=== PATIENT | female | born 1945 ===

== ENCOUNTER → 2024-12-26 12:48 | Outpatient (REF) | payer MEDICARE, OTHER, SELFPAY | LOC: HWRCS 12:48 | PROVIDERS: ATTENDING PHYSICIAN Internal Medicine Cardiovascular Disease; FAMILY PHYSICIAN Internal Medicine | DX: R06.09 Other forms of dyspnea (principal) | CPT/HCPCS: 93306 ==

== ENCOUNTER 2025-02-24 16:01 | Emergency (ER) | payer MEDICARE, OTHER, SELFPAY ==
[2025-02-24 16:04] VITALS: BP 156/78
[2025-02-24] MEDS: LET TOPICAL ANESTHETIC GEL 3 ML TOPICAL (16:29)
--- NOTE | 2025-02-24 18:18 | ED.GENMED ---
History of Present Illness
General
Chief Complaint: Fall
Time Seen by Provider: 02/24/25 16:11
History of Present Illness
History of Present Illness:
79-year-old female presents the emergency department as after tripping and falling from a [employer] store. Denies LOC. Denies any headache. Did have a minor nosebleed that has since improved. No neck pain or extremity paresthesias
Review of Systems
Review of Systems
Allergies reviewed?: Yes
All Other Systems: ROS reviewed and negative except as documented in HPI and ROS
Phy Exam
Physical Exam
Physical Exam:
GEN: Well appearing, NAD, WDWN
HEENT: Oral mucosa moist, no scleral icterus. Diffuse swelling and ecchymosis across the nasal bridge and periorbitally bilaterally. No gross nasal deformity. No active epistaxis. Intraoral laceration with extraoral extension to the right lower
lip does not cross the vermilion border, no dental injury. No midline cervical spine tenderness
Cardiac: Regular rate
Lung: No respiratory distress, no tachypnea
MSK: No gross deformity or injuries
Skin: Good color, no pallor or jaundice, no rashes
Neuro: AO x3, moves all extremities freely, bilateral upper extremity strength 5 out of 5
Psych: Calm, cooperative
Course
Orders/Labs/Results
Orders:
Orders
02/24/25 16:23
CT Head W/o Iv Contrast Urgent
Comment:
Reason For Exam: fall head injury
Lidocaine/Epinephrine/Tetracai [Let Topical Anesthetic Gel] 3 ml TOPICAL NOW STA
02/24/25 17:54
CR Shoulder - Right Min 2 View Urgent
Comment:
Reason For Exam: injury
Vital Signs
Initial and Last Documented VS:
Initial Vital Signs
Temp Pulse Resp BP Pulse Ox
98.0 F 76 18 156/78 98
02/24/25 16:04 02/24/25 16:04 02/24/25 16:04 02/24/25 16:04 02/24/25 16:04
Last Documented Vital Signs
Temp Pulse Resp BP Pulse Ox
98.0 F 76 18 156/78 98
02/24/25 16:04 02/24/25 16:04 02/24/25 16:04 02/24/25 16:04 02/24/25 18:19
Procedures
Laceration Closure
R lower lip, internal:
Status of Wound: clean
Size of Wound in cm: 1
Description of Wound Edges: ragged
Preparation: cleaned with saline
Anesthesia: 1% Lidocaine with epi
Wound exploration: explored to base- no FB
Type of Closure: single layer closure
Skin Closure Material: 5-0 chromic gut
Number of sutures: 1
MDM/Problems Addressed
MDM/Problems Addressed:
CT shows no evidence for acute intracranial injury. The patient did request shoulder imaging due to shoulder pain from initial evaluation however her exam is benign with no bony tenderness or ecchymosis. Intraoral laceration was closed with a
single suture and extraoral portion was closed with skin glue. Discussed supportive care
*Pulse Oximetry
SaO2: 98
Oxygen Mode of Delivery: Room air
Patient hypoxic: no
*Critical Care Note
Total Time (30-74mins, 75-104mins- exclusive of procedures): Not Applicable
ED Attending Note
-
Portions of this chart may have been created with voice recognition software.� Occasional wrong word or��sound alike� substitutions may have occurred due to the inherent limitations of voice recognition software.
Discharge Plan
Departure
Patient Disposition: Home (Routine Discharge)
Date of Disposition: 02/24/25
Time of Disposition: 18:18
Patient with high blood pressure during this ER visit?: No
Discharge Problem:
Closed head injury, Contusion of nose
Instructions: Head Injury in Adults (DC)
Prescriptions:
No Action
multivitamin Tablet
1 tab PO DAILY
clopidogrel 75 mg Tablet
75 mg PO DAILY
lorazepam 0.5 mg Tablet
0.5 mg PO HS
metoprolol tartrate 50 mg Tablet
50 mg PO BID
nitroglycerin 0.4 mg Tablet, Sublingual
0.4 mg SUBLINGUAL Q5-15M PRN (Reason: chest pain)
pravastatin 20 mg Tablet
20 mg PO QPM
cholecalciferol (vitamin D3) [Vitamin D3] 50 mcg (2,000 unit) Capsule
50 mcg PO DAILY
mupirocin 2 % ointment
1 applic topical BID Qty: 1 0RF
Patient Comments:
started treatment 03/04/23 and was taking BID, last took at home 03/07/23 in am
docusate sodium 100 mg Capsule
100 mg PO BID Qty: 30 0RF
famotidine 20 mg Tablet
20 mg PO HS Qty: 30 0RF
Rx Instructions:
Take nightly while on increased dose of Aspirin to prevent GI upset.
sennosides [Senna Lax] 8.6 mg Tablet
17.2 mg PO BID Qty: 30 0RF
tramadol 50 mg Tablet
50 - 100 mg PO Q6H PRN (Reason: moderate-severe pain) Qty: 30 0RF
Rx Instructions:
1 tab for moderate pain, 2 if severe.
Dx total joint.
ondansetron HCl 4 mg tablet
4 mg PO Q6H PRN (Reason: nausea and vomiting) Qty: 30 0RF
Rx Instructions:
Can take 1/2 hour prior to Tramadol if experiencing recurrent nausea.
prednisone 10 mg tablet
40 mg PO TAPER Qty: 20 0RF
Rx Instructions:
4 TABS X 2 DAYS, 3 TABS X 2 DAYS, 2 TABS X 2 DAYS, 1 TAB X 2 DAYS, THEN STOP
aspirin 81 mg tablet,chewable
81 mg PO BID Qty: 60 0RF
Rx Instructions:
Take twice a day for 4 weeks for blood clot prevention; then resume Aspirin 81 mg daily.
meclizine 12.5 mg tablet
12.5 mg PO TID PRN (Reason: motion sickness) Qty: 15 0RF
acetaminophen [Tylenol Extra Strength] 500 mg tablet
1,000 mg PO Q6H Qty: 60 0RF
Rx Instructions:
DO NOT exceed >4000 mg daily.
valsartan 80 mg Tablet
80 mg PO DAILY Qty: 0 0RF
Rx Instructions:
HOLD if systolic blood pressure <130 while on Tramadol.
amlodipine 2.5 mg Tablet
2.5 mg PO DAILY Qty: 0 0RF
Rx Instructions:
HOLD IF systolic blood pressure <130 while on Tramadol.
pramipexole 0.125 mg Tablet
0.125 mg PO HS Qty: 0 0RF
furosemide 20 mg Tablet
20 mg PO DAILY Qty: 0 0RF
Rx Instructions:
HOLD IF systolic blood pressure <130 while on Tramadol.
Referrals:
Noel Diamond MD [Family Provider, Internal Medicine]
Activity Restrictions/Additional Instructions:
Suture with dissolvable Nexplanon Sundays. It may come out as 1 strain after a period of time. Rinse the mouth gently with water after eating and avoid straws for the next 5 days
Interventions
Interventions:
*Risk Screen - Suicide Last Done: 02/24/25 18:40
*General Assessment Last Done: 02/24/25 16:04
*Neglect/Abuse Screening Last Done: 02/24/25 18:40
[facility] Risk Assessment Tool Last Done: 02/24/25 16:02
*Nursing Disposition Last Done: 02/24/25 18:40
ED-Musculoskeletal Assessment Last Done: 02/24/25 17:00
ED- Neurological Assessment Last Done: 02/24/25 17:00
ED-Skin Assessment Last Done: 02/24/25 17:00
Discharge Date and Time
Discharge Date/Time: 02/24/25 18:40
Print Language: [id number]
== END 2025-02-24 18:40 | disposition home or self-care (01) ==
LOC: EMR 16:01
PROVIDERS: EMERGENCY PHYSICIAN Emergency Medicine; FAMILY PHYSICIAN Internal Medicine
DX: S01.511A Laceration without foreign body of lip, initial encounter (principal); S00.33XA Contusion of nose, initial encounter; M25.511 Pain in right shoulder; W01.0XXA Fall on same level from slipping, tripping and stumbling without subsequent striking against object, initial encounter
CPT/HCPCS: 12011; 99284; 70450; 73030